=== PATIENT | female | born 1995 | race Caucasian/White ===

== ENCOUNTER → 2017-12-09 | Outpatient (REF) | payer MEDICAID, OTHER ==
[2017-12-09 12:40] LABS: CONTROL LINE UCG INT CTR LINE PRESENT; URINE PREG TEST NEGATIVE (NEGATIVE)
[2017-12-09 12:50] LABS: APPEARANCE, URINE CLOUDY (CLEAR); BACTERIA, URINE AUTO 1+ (NEGATIVE); BILIRUBIN, URINE AUTO NEGATIVE (NEGATIVE); BLOOD, URINE BLOOD 1+ (NEGATIVE); COLOR, URINE YELLOW (YELLOW); GLUCOSE, URINE (UA) AUTO NEGATIVE (NEGATIVE); KETONE, URINE AUTO 1+ mg/dL (NEGATIVE); LEUKOCYTE ESTERASE, URINE AUTO 2+ (NEGATIVE); MUCUS, URINE SMALL (NEGATIVE); NITRITE, URINE AUTO NEGATIVE (NEGATIVE); PROTEIN, URINE AUTO NEGATIVE (NEGATIVE); RBC, URINE AUTO 4 /HPF (0-3); SPECIFIC GRAVITY URINE AUTO 1.019 (1.002-1.035); SQUAMOUS EPITHELIAL CELL UR AU 7 /HPF (0-6); WBC, URINE AUTO 8 /HPF (0-3)
[2017-12-09 17:36] LABS: CHLAMYDIA DNA AMPLIFICATION POSITIVE (NEGATIVE); GC DNA AMPLIFICATION NEGATIVE (NEGATIVE)
[2017-12-11 12:25] LABS: HIV 1&2 SCREEN CENTAUR NEGATIVE (NEGATIVE)
== END ==
LOC: M LAB REF 12:03
DX: N89.9 Noninflammatory disorder of vagina, unspecified (principal); R10.2 Pelvic and perineal pain
CPT/HCPCS: 84703

== ENCOUNTER 2020-12-09 18:27 | Emergency (ER) | payer OTHER, SELFPAY ==
[~2020-12-09] VITALS: Ht 165.1 cm; Wt 61.4 kg
[2020-12-09 19:35] LABS: BASO % 0.2 % (0.0-1.0); EOS % 0.1 % (0.0-3.0); LYMPH # 1.2 10^3/uL (1.5-5.0); LYMPH % 12.3 % (24.0-44.0); MEAN CORPUSCULAR HEMOGLOBIN 32.6 pg (27.0-33.0); MEAN CORPUSCULAR HGB CONC 34.1 g/dl (32.0-36.5); MEAN CORPUSCULAR VOLUME 95.6 fl (80.0-96.0); MONO # 0.6 10^3/uL (0.0-0.8); MONO % 6.1 % (2.0-8.0); NEUTROPHILS # 7.6 10^3/uL (1.5-8.5); PLATELET COUNT, AUTOMATED 202 10^3/uL (150-450); RED BLOOD COUNT 4.29 10^6/uL (4.00-5.40); WHITE BLOOD COUNT 9.4 10^3/uL (4.0-10.0)
[2020-12-09 19:59] LABS: ALBUMIN 4.5 GM/DL (3.2-5.2); BILIRUBIN,DIRECT 0.2 MG/DL (0.0-0.2); BILIRUBIN,TOTAL 0.9 MG/DL (0.2-1.0); TOTAL PROTEIN 8.1 GM/DL (6.4-8.2)
[2020-12-09] MEDS ORDERED: ONDANSETRON 4MG/2ML VIAL IV ONE ×2 (21:15→22:50)
[2020-12-09] MEDS ORDERED: GI COCKTAIL 50ML BTL(HYOSCYAMINE/MAALOX/LIDOCAINE VISCOUS)(1:3:1) PO ONE (21:15)
[2020-12-09] MEDS ORDERED: SUCRALFATE 1 GM TAB PO ONE (21:15)
[2020-12-09] MEDS ORDERED: PANTOPRAZOLE 40MG VIAL (C9113 PER 1) IV ONE (21:15)
[2020-12-09] MEDS ORDERED: NS 1,000 ML IV ONE (21:15)
[2020-12-09] MEDS ORDERED: ISOVUE-370 76% 100ML VIAL As Ordered ONE (21:21)
[2020-12-09] MEDS ORDERED: MORPHINE 4 MG/ML 1ML VIAL/SYRINGE (J2270) IV ONE (22:50)
--- NOTE | 2020-12-09 23:05 | REPVR ---
PROCEDURE INFORMATION: Exam: CT Abdomen And Pelvis With Contrast Exam date and time: 12/09/2020 9:26 PM Age: 25 years old Clinical indication: Abdominal pain; Additional info: Epigastric pain, nvd, loss appetite TECHNIQUE: Imaging protocol: Computed tomography of the abdomen and pelvis with contrast. Radiation optimization: All CT scans at this facility use at least one of these dose optimization techniques: automated exposure control; mA and/or kV adjustment per patient size (includes targeted exams where dose is matched to clinical indication); or iterative reconstruction. Contrast material: ISOVUE 370; Contrast volume: 100 ml; Contrast route: INTRAVENOUS (IV); COMPARISON: No relevant prior studies available. FINDINGS: Liver: The liver attenuation is 109 Hounsfield units and the spleen is 156 Hounsfield units. Gallbladder and bile ducts: Normal. No calcified stones. No ductal dilation. Pancreas: Normal. No ductal dilation. Spleen: Large splenic cyst measuring 9.7 x 10.9 x 10.0 cm with a Hounsfield measurement of 26. The spleen measures 13.1 cm. Adrenal glands: Normal. No mass. Kidneys and ureters: Normal. No hydronephrosis. Stomach and bowel: Unremarkable. No obstruction. No mucosal thickening. Appendix: A normal appendix is seen. Intraperitoneal space: Unremarkable. No free air. No significant fluid collection. Vasculature: Unremarkable. No abdominal aortic aneurysm. Lymph nodes: Unremarkable. No enlarged lymph nodes. Urinary bladder: Unremarkable as visualized. Reproductive: Left ovarian cyst measuring 2.7 x 2.9 x 2.5 cm. Bones/joints: Unremarkable. No acute fracture. Soft tissues: Unremarkable. IMPRESSION: 1. Mild splenomegaly due to large splenic cyst which measures 9.7 x 10.9 x 10.0 cm. 2. Fatty infiltration of the liver. 3. Left ovarian cyst measuring 2.7 x 2.9 x 2.5 cm[address] Otherwise negative CT abdomen/pelvis. Electronically signed by: Jass Moore On 12/09/2020 23:04:34 PM
[2020-12-09] MEDS ORDERED: ONDA4TAB6 PO (23:40)
[2020-12-09] MEDS ORDERED: DICY10CA13 PO (23:40)
[2020-12-09] MEDS ORDERED: ONDANSETRON 4 MG ORAL DISINTEGRATING TAB PO ONE (23:45)
[2020-12-09] MEDS ORDERED: NORCO 5/325MG TABLET (BULK FOR ED) PO ONE (23:45)
[2020-12-09] MEDS ORDERED: DICYCLOMINE 10 MG CAP PO ONE (23:45)
[2020-12-10 00:01] VITALS: BP 121/63
--- NOTE | 2020-12-10 08:23 | ED PDOC ---
Post-Departure Follow-Up radiology repor tfaxed to Dr. Rubi and Montserrat Thapa MD December 10, 2020 08:22
== END 2020-12-10 00:08 | disposition home or self-care (01) ==
LOC: M ED 18:27
DX: R10.13 Epigastric pain (principal); R11.2 Nausea with vomiting, unspecified; R19.7 Diarrhea, unspecified; D73.4 Cyst of spleen; N83.202 Unspecified ovarian cyst, left side
CPT/HCPCS: 74177; 80047; 80076; 81001; 83690; 84702; 85025; 96361; 96374; 96375; 99284; C9113; J2270; J2405; Q0162; Q9967

== ENCOUNTER 2023-03-26 07:31 | Emergency (ER) | payer OTHER, SELFPAY ==
[~2023-03-26] VITALS: Ht 165.1 cm; Wt 62.0 kg
[~2023-03-26 07:31] MED LIST: DICY-61 PO; ONDA4TAB6 PO
[2023-03-26] MEDS ORDERED: SERT50TA29 (07:39)
[2023-03-26 08:35] LABS: BASO % 0.2 % (0.0-1.0); EOS % 0.1 % (0.0-3.0); HEMATOCRIT 43.8 % (36.0-47.0); HEMOGLOBIN 14.7 g/dl (12.0-15.5); LYMPH % 10.2 % (24.0-44.0); MEAN CORPUSCULAR HEMOGLOBIN 32.3 pg (27.0-33.0); MEAN CORPUSCULAR HGB CONC 33.6 g/dl (32.0-36.5); MEAN CORPUSCULAR VOLUME 96.3 fl (80.0-96.0); MONO # 0.6 10^3/uL (0.0-0.8); MONO % 5.9 % (2.0-8.0); NEUTROPHILS # 8.4 10^3/uL (1.5-8.5); NEUTROPHILS % 83.1 % (36.0-66.0); PLATELET COUNT, AUTOMATED 228 10^3/uL (150-450); RED BLOOD COUNT 4.55 10^6/uL (4.00-5.40); WHITE BLOOD COUNT 10.1 10^3/uL (4.0-10.0)
[2023-03-26 08:55] LABS: LIPASE 31 U/L (12-53)
[2023-03-26 08:57] LABS: ALBUMIN 4.8 G/DL (3.2-5.2); ALKALINE PHOSPHATASE 84 U/L (46-116); ALT/SGPT 21 U/L (7.0-40); AST/SGOT 16 U/L (<34); BILIRUBIN,DIRECT 0.4 MG/DL (<0.4); BILIRUBIN,TOTAL 1.5 MG/DL (0.3-1.2); BLOOD UREA NITROGEN 17 MG/DL (9-23); CALCIUM LEVEL 10.3 MG/DL (8.5-10.1); CARBON DIOXIDE LEVEL 28 MMOL/L (20-31); CHLORIDE LEVEL 100 MMOL/L (98-107); CREATININE FOR GFR 0.88 MG/DL (0.55-1.30); GLOMERULAR FILTRATION RATE > 60.0 (>60); GLUCOSE, FASTING 116 MG/DL (60-100); POTASSIUM SERUM 3.8 MMOL/L (3.5-5.1); SODIUM LEVEL 138 MMOL/L (136-145)
[2023-03-26 09:02] LABS: HCG, SERUM QUALITATIVE NEGATIVE (NEGATIVE)
[2023-03-26] MEDS ORDERED: ONDANSETRON 4MG 2ML VIAL IV ONE (09:50)
[2023-03-26] MEDS ORDERED: NS 1,000 ML IV ONE (09:50)
[2023-03-26] MEDS ORDERED: ISOVUE-370 76% 100ML VIAL As Ordered ONE (09:58)
[2023-03-26] MEDS ORDERED: MAALOX 30 ML SUSP *UDC PO ONE (11:05)
[2023-03-26] MEDS ORDERED: ONDA4TAB6 PO (11:46)
[2023-03-26] MEDS ORDERED: FAMO10TA50 PO (11:46)
[2023-03-26 12:06] VITALS: BP 128/77; TEMP 98.3; O2SAT 97
== END 2023-03-26 12:08 | disposition home or self-care (01) ==
LOC: M ED 07:31
DX: R11.2 Nausea with vomiting, unspecified (principal); D73.4 Cyst of spleen; F32.A Depression, unspecified; F12.10 Cannabis abuse, uncomplicated; F10.10 Alcohol abuse, uncomplicated; Z79.83 Long term (current) use of bisphosphonates; Z79.899 Other long term (current) drug therapy
CPT/HCPCS: 74177; 80048; 80076; 83690; 84703; 85025; 96361; 96374; 99284; J2405; Q9967

== ENCOUNTER 2023-03-29 14:42 | Emergency (ER) | payer OTHER ==
[~2023-03-29] VITALS: Ht 165.1 cm; Wt 62.0 kg
[~2023-03-29 14:42] MED LIST changes: +FAMO10TA50 PO; +SERT50TA29
[2023-03-29] MEDS ORDERED: NS 1,000 ML IV ONE ×2 (15:30→15:45)
[2023-03-29] MEDS ORDERED: HALOPERIDOL 5MG/ML 1ML VIAL IV ONE (15:45)
[2023-03-29 16:22] LABS: BASO % 0.2 % (0.0-1.0); HEMATOCRIT 40.2 % (36.0-47.0); HEMOGLOBIN 14.2 g/dl (12.0-15.5); LYMPH # 0.4 10^3/uL (1.5-5.0); LYMPH % 3.9 % (24.0-44.0); MEAN CORPUSCULAR HEMOGLOBIN 32.6 pg (27.0-33.0); MEAN CORPUSCULAR HGB CONC 35.3 g/dl (32.0-36.5); MEAN CORPUSCULAR VOLUME 92.2 fl (80.0-96.0); MONO # 0.1 10^3/uL (0.0-0.8); MONO % 1.4 % (2.0-8.0); NEUTROPHILS # 9.5 10^3/uL (1.5-8.5); NEUTROPHILS % 93.9 % (36.0-66.0); PLATELET COUNT, AUTOMATED 221 10^3/uL (150-450); RED BLOOD COUNT 4.36 10^6/uL (4.00-5.40); WHITE BLOOD COUNT 10.1 10^3/uL (4.0-10.0)
[2023-03-29 16:43] LABS: LIPASE 33 U/L (12-53)
[2023-03-29 16:46] LABS: ALBUMIN 4.6 G/DL (3.2-5.2); ALKALINE PHOSPHATASE 79 U/L (46-116); ALT/SGPT 14 U/L (7.0-40); AST/SGOT 16 U/L (<34); BILIRUBIN,DIRECT 0.4 MG/DL (<0.4); BLOOD UREA NITROGEN 14 MG/DL (9-23); CALCIUM LEVEL 9.2 MG/DL (8.5-10.1); CARBON DIOXIDE LEVEL 24 MMOL/L (20-31); CHLORIDE LEVEL 103 MMOL/L (98-107); CREATININE FOR GFR 0.67 MG/DL (0.55-1.30); GLOMERULAR FILTRATION RATE > 60.0 (>60); GLUCOSE, FASTING 109 MG/DL (60-100); POTASSIUM SERUM 3.7 MMOL/L (3.5-5.1); SODIUM LEVEL 138 MMOL/L (136-145); TOTAL PROTEIN 7.8 G/DL (5.7-8.2)
[2023-03-29 16:54] LABS: RSV AMPLIFICATION NEGATIVE (NEGATIVE)
[2023-03-29 18:15] VITALS: BP 102/56; TEMP 99.6; O2SAT 97
== END 2023-03-29 18:30 | disposition home or self-care (01) ==
LOC: M ED 14:42
DX: R11.15 Cyclical vomiting syndrome unrelated to migraine (principal); I49.9 Cardiac arrhythmia, unspecified
CPT/HCPCS: 80048; 80076; 83605; 83690; 83735; 85025; 86618; 87040; 87631; 93005; 96361; 96374; 99284; J1630

== ENCOUNTER → 2023-08-12 | Outpatient (CLI) | payer OTHER, SELFPAY ==
[2023-08-12 10:33] LABS: BASO # 0.1 10^3/uL (0.0-0.2); EOS # 0.1 10^3/uL (0.0-0.5); EOS % 2.6 % (0.0-3.0); HEMATOCRIT 42.7 % (36.0-47.0); HEMOGLOBIN 14.4 g/dl (12.0-15.5); LYMPH # 1.4 10^3/uL (1.5-5.0); LYMPH % 28.4 % (24.0-44.0); MEAN CORPUSCULAR HEMOGLOBIN 32.7 pg (27.0-33.0); MEAN CORPUSCULAR HGB CONC 33.7 g/dl (32.0-36.5); MEAN CORPUSCULAR VOLUME 96.8 fl (80.0-96.0); MONO # 0.3 10^3/uL (0.0-0.8); MONO % 6.6 % (2.0-8.0); NEUTROPHILS # 3.1 10^3/uL (1.5-8.5); PLATELET COUNT, AUTOMATED 203 10^3/uL (150-450); RED BLOOD COUNT 4.41 10^6/uL (4.00-5.40)
[2023-08-12 10:56] LABS: ALBUMIN 4.1 G/DL (3.2-5.2); ALKALINE PHOSPHATASE 65 U/L (46-116); ALT/SGPT 12 U/L (7.0-40); AST/SGOT 12 U/L (<34); BILIRUBIN,DIRECT 0.2 MG/DL (<0.4); BILIRUBIN,TOTAL 0.5 MG/DL (0.3-1.2); BLOOD UREA NITROGEN 18 MG/DL (9-23); CREATININE FOR GFR 0.72 MG/DL (0.55-1.30); GLOMERULAR FILTRATION RATE > 60.0 (>60)
== END ==
LOC: M RAD 07:30
PROVIDERS: ATTEND Internal Medicine Gastroenterology
DX: R11.2 Nausea with vomiting, unspecified (principal)

== ENCOUNTER → 2023-08-20 | Outpatient (REF) | payer OTHER | LOC: M LAB REF 15:26 | PROVIDERS: ATTEND Internal Medicine Gastroenterology | DX: R11.2 Nausea with vomiting, unspecified (principal) ==